=== PATIENT | male | born 1955 | race Caucasian/White ===

== ENCOUNTER 2016-09-05 14:45 | Inpatient (IN) | payer SELFPAY ==
--- NOTE | ~2016-09-05 | IDS ---
Interim Discharge Summary [facility] [address] [place]. [address] NAME: BRISSA KUMARI : 51 STATUS : ADM IN PAT#: [id number] AGE: 61 ADM/REG DATE : 09/05/16 MR#: [id number] REPORT SERV DATE: 09/09/16 DICTATED BY: BRIANA DECKER DATE: 09/09/16 REPORT STATUS : Draft TRANSCRIBED BY: MODL DATE: 09/09/16 ADMISSION DATE: 09/05/2016 DISCHARGE DATE: CURRENT HOSPITAL DIAGNOSES: 1. Hydronephrosis, acute on chronic renal failure. 2. Left renal mass. 3. Left flank pain, fevers, and chills secondary to above. 4. Prior history of renal cancer. 5. History of asthma. 6. History of coronary artery disease, congestive heart failure. 7. Hypertension. CONSULTATIONS: Dr. Miller of Urology, Dr. Smiley, Infectious Disease, and Nephrology. PROCEDURES: 1. Renal biopsy. 2. CT abdomen and pelvis done on 09/05/2016 showing moderate left hydronephrosis and hydroureter to the level of the patient's ileal conduit. Prominent left perinephric stranding, concerning for stricture of the ureter at this level with conduit, superimposed infection with pyelonephritis is not excluded. Stable irregular hyperdense exophytic lesion, left kidney 21 x 31 with some associated fat density in the superior aspect. This may represent post ablation scar status post right nephrectomy, cystectomy, and ileal conduit creation. Small seroma involving the left flank musculature, cholelithiasis without cystitis. Previous median sternotomy. 3. Left nephrostomy tube placement. CURRENT PHYSICAL FINDINGS AND HISTORY OF PRESENT ILLNESS: Please see dictated H and P by Dr. Gandara. In brief, the patient is a 61-year-old male with above medical history who presented with complaints of left flank pain, fever, and chills. LABORATORY AND VITALS: Presenting BP was 137/72, temp was 101.4. Pulse was in the low 100s. LAB: Initial BMP showed a creatinine of 4.36, it did climb as high as 4.98 on 09/07/2016 but is currently trending down to most recent 3.76. Lactate was 1.8 on 09/05/2016, 0.7 on the 09/06/2016. Initial white count was 11.2, reaching a maximum of 13, subsequent was 6.5 and 4.7. MICROBIOLOGY: Blood count showed a strep viridans and a Klebsiella. Subsequent blood cultures were negative. Surgical cultures are pending. Urine culture was E. coli, and Klebsiella oxytoca. HOSPITAL COURSE: The patient was admitted. ID and Urology were consulted. IV fluids were initiated at 150. Antifungals and antibiotics were started given patient's previous history. Reasonable pain medications were also provided. Intervention Radiology was consulted for the nephrostomy tube placement and CT guided biopsies which were performed Interim Discharge Summary [address] [address] NAME: BRISSA KUMARI : 51 STATUS : ADM IN [facility]#: [id number] AGE: 61 ADM/REG DATE : 09/05/16 MR#: [id number] REPORT SERV DATE: 09/09/16 DICTATED BY: BRIANA DECKER DATE: 09/09/16 REPORT STATUS : Draft TRANSCRIBED BY: MODL DATE: 09/09/16 without incident. The following morning, Nephrology was consulted, and his antibiotics were changed to Zosyn and his micafungin was discontinued. Serial creatinines were followed and improving. Nephrology had no other recommendations as the patient needing emergent dialysis. The patient continued to improve with no pain, tolerating diet, ambulatory, no significant electrolyte abnormalities and no fluid overload issues. DISPOSITION: The patient is expected to be discharged in the morning with p.o. antibiotics and Nephrology and Urology followup. BLACKF/MODL Briana Decker M.D. / [id number] CC: Favian Duran MD
--- NOTE | ~2016-09-05 | CN ---
Consultation Report [facility] [address] [place]. [address] NAME: BRISSA KUMARI : 51 STATUS : ADM IN PAT#: [id number] AGE: 61 ADM/REG DATE : 09/05/16 MR#: [id number] REPORT SERV DATE: 09/06/16 DICTATED BY: GERALD SMILEY DATE: 09/06/16 REPORT STATUS : Draft TRANSCRIBED BY: MODL DATE: 09/06/16 INFECTIOUS DISEASE CONSULTATION DATE OF CONSULTATION: 09/06/2016 REASON FOR CONSULTATION: Pyelonephritis with sepsis. HISTORY OF PRESENT ILLNESS: This is a 61-year-old man with past medical history notable for severe chronic cystitis with right renal atrophy and left hydronephrosis, for which he underwent right laparoscopic simple nephrectomy, open simple cystectomy, and ileal conduit diversion by Dr. Miller in 11/2015. He also has a history of left-sided renal cell carcinoma, treated surgically in [place] about eight years ago. Since his surgery last summer, he has been doing very well until he awoke early yesterday morning with severe left flank pain. He also noticed that he did not have much output into his ileal conduit bag. These symptoms brought him to Dr. Miller' office, where he looked quite ill and was sent to the emergency department, where he was found to be tachycardiac, mildly tachypneic, and have a fever of 101.4 and white blood cell count of 11,200. The patient underwent a CT scan of the abdomen and pelvis without IV contrast, which demonstrated moderate left hydronephrosis and hydroureter down to the level of the patient's ileal conduit with prominent left perinephric stranding. There was also the stable, regular, hyperdense exophytic lesion involving the mid to upper left kidney, which was unchanged from the CT scan of 11/2015. The patient had pyuria on his urinalysis. He was started on Zosyn and micafungin empirically. He had had [place] urinary tract infection last summer. The patient also was found to have elevated creatinine above his baseline with a creatinine up to 4.52 today. He does report though that he has had good output into his conduit bag since the initial hours yesterday morning. His urine culture is growing greater than 100,000 colonies of a gram- negative pilo. The patient has been seen by Dr. Miller and is scheduled for a left nephroureteral stent and an antegrade nephrostogram in Interventional Radiology today along with CT-guided biopsy of the left renal mass. He does feel somewhat better. PAST MEDICAL HISTORY: In addition to the above is notable for chronic kidney disease with a creatinine back in May of 3.40. He also has a history of hypertension, hyperlipidemia, nasal polyps. He has coronary artery disease. ALLERGIES: NO KNOWN DRUG ALLERGIES. OUTPATIENT MEDICATIONS: Include Norvasc, Coreg, hydralazine, Indocin p.r.n. for gout, sodium bicarbonate. SOCIAL HISTORY: Nondrinker, nonsmoker. . FAMILY HISTORY: Noncontributory. REVIEW OF SYSTEMS: Consultation Report [address] [place]. [address] NAME: BRISSA KUMARI : 51 STATUS : ADM IN [facility]#: [id number] AGE: 61 ADM/REG DATE : 09/05/16 MR#: [id number] REPORT SERV DATE: 09/06/16 DICTATED BY: GERALD SMILEY DATE: 09/06/16 REPORT STATUS : Draft TRANSCRIBED BY: MICH DATE: 09/06/16 Otherwise negative. PHYSICAL EXAMINATION: VITAL SIGNS: The patient weighs 104 kg. He is afebrile. Blood pressure 168/73, pulse at present is 89, respiratory rate 14. Maximum temperature since his admission was 101.4 yesterday. GENERAL: He is alert, in no acute distress. HEAD AND NECK: Unremarkable. LUNGS: Clear to auscultation. CARDIAC: Regular rate and rhythm. Normal S1 and S2 without murmur, gallop, or rub. ABDOMEN: Soft and nontender. Ileal conduit in place. There is tenderness to palpation over the left flank area. SKIN: Without rash. EXTREMITIES: Without significant edema. He has a peripheral IV without phlebitis. LABORATORY STUDIES: White blood cell count today 13.0, hemoglobin 10.7, platelets 148. Creatinine of 4.52, albumin is 2.6, liver function tests normal. Culture data as noted above. CT scan as noted. IMPRESSION: Gram-negative pilo pyelonephritis with sepsis on admission in a patient with a history of right nephrectomy and ileal conduit. He also has chronic kidney disease and acute kidney injury along with a history of renal cell carcinoma in the distant past with a stable left renal mass now. PLAN: 1. We will continue Zosyn and stop the micafungin pending final urine culture results. 2. The patient will undergo left nephroureteral stent and nephrostogram today along with a biopsy of the renal mass. KAI/MICH Gerald Smiley M.D. / [id number] CC: Favian Duran MD
--- NOTE | ~2016-09-05 | DS ---
Discharge Summary [facility] [id number] [place]. [address] NAME: BRISSA KUMARI : 51 STATUS : DIS IN PAT#: [id number] AGE: 61 ADM/REG DATE : 09/05/16 MR#: [id number] REPORT SERV DATE: 09/11/16 DICTATED BY: SHERMAN AYALA DATE: 09/10/16 REPORT STATUS : Draft TRANSCRIBED BY: MICH DATE: 09/10/16 ADMISSION DATE: 09/05/2016 DISCHARGE DATE: 09/10/2016 DISCHARGE DIAGNOSES: 1. Left-sided hydronephrosis, status post nephrostomy tube placement. 2. Left renal mass. 3. Prior history of renal cancer. 4. History of asthma. 5. History of coronary artery disease. 6. Congestive heart failure. 7. Hypertension. HOSPITAL COURSE: This is basically just an addendum to an interim discharge summary that was dictated by Dr. Felipe Poon just yesterday. Please refer to his interim discharge summary for details. Basically, the patient was ready for discharge home and was awaiting a p.o. transition of antibiotic therapy before he is discharged home. This morning, the patient's antibiotic was changed to p.o. Levaquin, and the patient is being discharged home with close outpatient followup instructions with Urology as well as Nephrology. FREDDY/MICH Sherman Ayala MD / [id number]
--- NOTE | ~2016-09-05 | CN ---
Consultation Report [facility] [address] [place]. [address] NAME: BRISSA KUMARI : 51 STATUS : ADM IN PAT#: [id number] AGE: 61 ADM/REG DATE : 09/05/16 MR#: [id number] REPORT SERV DATE: 09/06/16 DICTATED BY: THIERRY MILLER DATE: 09/06/16 REPORT STATUS : Draft TRANSCRIBED BY: MODL DATE: 09/06/16 CONSULTATION DATE OF CONSULTATION: 09/06/2016 REASON CONSULTATION: 1. Hydronephrosis and acute renal failure. 2. Left renal mass. HISTORY OF PRESENT ILLNESS: Mr. uKmari is a 61-year-old male, who is well known to me. He has a history of a nonfunctioning right kidney and end-stage bladder with vqaox-am-gantsos renal failure about a year ago. He failed all conservative management and had severe hydronephrosis with renal failure. Ultimately, he underwent a radical cystoprostatectomy and right nephrectomy. He has an ileal conduit. He has a left kidney. He has had some residual hydronephrosis, but overall his kidney function has been relatively preserved in followup. He was in his usual state of health until he noticed severe left flank pain acutely. He had a drop in his urine output. He started feeling poorly. He presented to my office and looked unwell. At that time, I sent him immediately to the ER. In the ER, his creatinine was 4.5. A CT scan showed left hydronephrosis and hydroureter. He has had a white count with no fever. He was admitted to the hospitalist service and I have been asked to consult given these findings. Of note, he does have a history of left renal cell carcinoma, which had a treatment in the past. He has a mass in the left kidney. I have been observing this given the implications of any sort of renal surgery on this. We should do any sort of procedure, we would likely need him on dialysis. PAST MEDICAL HISTORY: Chronic kidney disease, kidney cancer, history of atrophic right kidney, history of recurrent fungal UTI, history of left nephrostomy tube placement, asthma, congestive heart failure, coronary artery disease, status post CABG, hypertension, gout. SURGICAL HISTORY: Left partial nephrectomy in the remote past, right nephrectomy for atrophic kidney, radical cystoprostatectomy with ileal conduit urinary diversion, CABG, history of percutaneous procedures on the left kidney. SOCIAL HISTORY: He has significant alcohol consumption. He does not smoke. No illegal drugs. FAMILY HISTORY: Noncontributory. ALLERGIES: NONE. MEDICATIONS: Reviewed and are listed on the chart. REVIEW OF SYSTEMS: 12-point review of systems was performed. Pertinent positives are listed in the HPI. Consultation Report [address] [place]. [address] NAME: BRISSA KUMARI : 51 STATUS : ADM IN [facility]#: [id number] AGE: 61 ADM/REG DATE : 09/05/16 MR#: [id number] REPORT SERV DATE: 09/06/16 DICTATED BY: THIERRY MILLER DATE: 09/06/16 REPORT STATUS : Draft TRANSCRIBED BY: MICH DATE: 09/06/16 PHYSICAL EXAMINATION: VITAL SIGNS: Temperature is 99.3, pulse 70s to 80s, blood pressure 168/73, saturating 95% on room air. He has no acute distress. He appears his stated age. HEENT: Head is normocephalic and atraumatic. LUNGS: Breathing is nonlabored. He is not in respiratory distress. Pulse is regular in rate and rhythm. ABDOMEN: Soft, nontender, nondistended. He has left CVA tenderness. He has an ileal conduit in the right lower quadrant. : He has normal external genitalia. EXTREMITIES: There is no cyanosis or edema. NEUROLOGIC: He is alert and oriented x3. LABORATORY DATA: His white count is 13.0, hemoglobin 10.7, creatinine is 4.5. He is slightly acidotic with a CO2 of 19. Urine is inflammatory, cultures are pending. IMAGING: CT scan of the abdomen and pelvis without contrast was personally reviewed and interpreted by myself. He has an absence of the right kidney. His left kidney has mild-to- moderate hydronephrosis, down to the level of the ileal conduit. He has a 3 cm left renal mass. PLAN: Mr. Kumari is a 61-year-old male with [id number] renal failure. Fortunately, I am unsure if dehydration or obstruction is the driving force here. Given the fact that he is on the cusp of dialysis, I recommend placement of a left percutaneous nephroureteral stent with Intervention Radiology. A consultation has been placed. As his renal function declines, he may eventually have a nonfunctioning kidney, where we would need to make decisions about what to do with this renal mass. I have held off on treatment as it has been stable and I think any sort of renal procedure would have irreversibly damage that left remaining kidney. However at this time, I think doing a biopsy of his left renal mass will give us information about how to proceed from here. So, again we need to get a left nephrostomy tube and left renal mass biopsy, and Nephrology consult should be ordered. I will continue to follow very closely. JKM/MODL Thierry Miller MD / [id number] CC: Favian Duran MD
--- NOTE | ~2016-09-05 | CN ---
Consultation Report [facility] [address] [place]. [address] NAME: BRISSA KUMARI : 51 STATUS : ADM IN PAT#: [id number] AGE: 61 ADM/REG DATE : 09/05/16 MR#: [id number] REPORT SERV DATE: 09/07/16 DICTATED BY: DATE: REPORT STATUS : Draft TRANSCRIBED BY: MODL DATE: 09/07/16 CONSULTATION DATE OF CONSULTATION: REASON FOR CONSULTATION: Acute kidney injury. HISTORY OF PRESENT ILLNESS: Mr. Kumari is a 61-year-old white male who we saw in original consultation in 11/2015. He has a quite extensive nephrologic history, which includes renal cell carcinoma with right nephrectomy, a left partial nephrectomy. He has had cystectomy, ileal conduit placement. He was set up to follow up in our office last summer after that hospitalization, however, has never been to our office, the details of which I am uncertain on. It looks as though his creatinine in 05/2016 had risen to 3.4. He has been followed by Dr. Miller from a urologic standpoint. He is here at this time, as he awoke on the day of presentation with left flank pain, fevers, chills, and no urine output in his drainage bag. Therefore, he saw Dr. Miller who immediately sent him to the emergency department where he was found to have left hydro, suspicion for pyelo. He also had a left kidney mass and that has been followed at the office. So yesterday, he underwent a left nephrostomy tube with nephroureteral stent and a biopsy of that mass. His creatinine since admission has gone from 4.3 to 4.5 to 4.9. He has only 500 recorded urine output, however, he reports more urine output than that. He is denying any shortness of breath, nausea, or vomiting. No confusion. No edema. PAST MEDICAL HISTORY: Left renal cell carcinoma with partial nephrectomy, right nephrectomy for renal cell. He has had open cystectomy, ileal conduit; coronary artery disease, status post bypass; pulmonary hypertension; CHF is listed in his history, although when I asked about his heart condition, he states that he has good heart function; and gout. ALLERGIES: NONE. SOCIAL HISTORY: He is but lives in a home with his ex-. A distant history of cocaine use. No alcohol. FAMILY MEDICAL HISTORY: Negative for any kidney disease. Positive for diabetes, TIAs, heart disease. MEDICATIONS: Norvasc, Coreg, Apresoline, Zosyn, Ambien, and bicarbonate. REVIEW OF SYSTEMS: 12-point review of systems was obtained and negative with the exception of that in HPI. PHYSICAL EXAMINATION: VITAL SIGNS: Temperature 98.4, blood pressure 140/65, pulse 80, respiratory rate 15, O2 saturation is 95%. Consultation Report [facility] [id number] [place]. [address] NAME: BRISSA KUMARI : 51 STATUS : ADM IN [facility]#: [id number] AGE: 61 ADM/REG DATE : 09/05/16 MR#: [id number] REPORT SERV DATE: 09/07/16 DICTATED BY: DATE: REPORT STATUS : Draft TRANSCRIBED BY: MICH DATE: 09/07/16 GENERAL: This is a pleasant cooperative white male. He is awake, alert, oriented, sitting up in bed, in no acute distress. Answers questions appropriately. HEENT: Normocephalic and atraumatic. Conjunctivae are clear. Sclerae are anicteric. Pupils are equal and round. Oral mucosa is moist. NECK: Supple. Carotids are brisk. Neck veins flat. No lymphadenopathy. LUNGS: Respirations are even and unlabored. Breath sounds are clear to auscultation. HEART: Rate is regular. No murmur, rub, or gallop. ABDOMEN: Soft and nontender. Bowel sounds active. No masses. No hepatosplenomegaly. No bruits. He does have a nephrostomy tube to the left. EXTREMITIES: No lower extremity edema. SKIN: Warm, dry, and intact. No unusual rashes or skin lesions. NEURO: No focal deficits. Mood and affect pleasant and appropriate. PERTINENT LABORATORIES AND X-RAY FINDINGS: Sodium 145, potassium 4.3, chloride 115, CO2 of 19, BUN of 53, creatinine of 4.9, calcium 7.6, magnesium 1.7, albumin of 2.6. WBCs 6.5, hemoglobin and hematocrit 10 and 30, platelets 144,000. Urine: Many bacteria, white blood cells, white blood cell clumps, red blood cells. Protein 100 mg/dL. IMPRESSION: 1. Acute kidney injury. 2. Solitary kidney with partial nephrectomy in the solitary kidney. 3. Status post cystectomy and ileal conduit. 4. Pyelonephritis. 5. Left hydronephrosis. 6. Left kidney mass, status post biopsy, postoperative day 1. PLAN/RECOMMENDATION: Acute kidney injury in the setting of all of the above. He had a left nephrostomy and nephroureteral stent and biopsy to the left renal mass. Creatinine increasing daily. He is nonoliguric and no uremic symptoms or volume overload or indication for HD today. However, I did discuss if continued worsening of renal function, would need to start dialysis. Also even if kidney function gets better, we need to start dialysis planning. He voiced understanding and the need for followup of this. If his biopsy comes back positive and he needs nephrectomy, we will plan on starting dialysis and coordinate that with Urology. We will follow along with you. Thank you for the consultation. ELIZABETH/MICH LUCY Hernandez / [id number] Consultation Report [address] [address] NAME: BRISSA KUMARI : 51 STATUS : ADM IN [facility]#: [id number] AGE: 61 ADM/REG DATE : 09/05/16 MR#: [id number] REPORT SERV DATE: 09/07/16 DICTATED BY: DATE: REPORT STATUS : Draft TRANSCRIBED BY: MICH DATE: 09/07/16 CC: Favian Duran MD
--- NOTE | ~2016-09-05 | HP ---
History And Physical [place] [id number] [facility]. [address] NAME: BRISSA KUMARI : 51 STATUS : ADM IN PAT#: [id number] AGE: 61 ADM/REG DATE : 09/05/16 MR#: [id number] REPORT SERV DATE: 09/06/16 DICTATED BY: RUDOLPH PAZ DATE: 09/06/16 REPORT STATUS : Draft TRANSCRIBED BY: MODL DATE: 09/06/16 DATE OF ADMISSION: 09/05/2016 CHIEF COMPLAINT: Left flank pain, fever, and chills. HISTORY OF PRESENT ILLNESS: This is a 61-year-old male, who presents to the emergency room at [facility] with the above-mentioned complaint. History is obtained from the patient and reviewing data available on the wmb[employer] system. According to the patient, it started around 5:00 a.m. when he woke up, and felt severe pain in the left flank region. He could not get out of bed and decided to sleep some more. When he woke up, he again started experiencing similar pain. The pain actually gradually increased during the course of the day. Around afternoon he went to see his urologist, Dr. Anjum Miller, in his office. Dr. Miller in his words took one look at him and said he needs to go to the ER. In the emergency room, initial workup including CT scan of his abdomen and pelvis showed left perinephric stranding with left hydronephrosis and hydroureter. There was also mention of a possible stricture of the ureter at the level of conduit. ER physician spoke with Dr. Miller, who wanted Hospitalist Service to admit him. At the time of my evaluation, he denied any chest pain or palpitations. He had no orthopnea. He had no cough, hemoptysis, night sweats, or weight loss. He has not had any recent falls or loss of consciousness. He did have some shaking chills today along with possibly fevers according to him. He has had some nausea, but without vomiting. No diarrhea. No other history of hematemesis, hematochezia, or hematuria. No history of recent travel or exposures, other than those mentioned above. PAST MEDICAL HISTORY: Significant for history of chronic kidney disease, history of renal cancer, history of atrophic right kidney, history of recurrent fungal urinary tract infections, history of left nephroureteral stent placement by Dr. Miller recently. He also has history of asthma, congestive heart failure, coronary artery disease with CABG, hypertension, gout. SOCIAL HISTORY: He does not smoke, but has about five to six beers every day. He denies recreational drug use or any other addictions. FAMILY HISTORY: Noncontributory. MEDICATIONS: Medications at home were reviewed by me in the chart today and reordered by me. REVIEW OF SYSTEMS: As in history of present illness. All other systems were reviewed in detail and are quite unremarkable. PHYSICAL EXAMINATION: History And Physical [address] [address] NAME: BRISSA KUMARI : 51 STATUS : ADM IN [facility]#: [id number] AGE: 61 ADM/REG DATE : 09/05/16 MR#: [id number] REPORT SERV DATE: 09/06/16 DICTATED BY: RUDOLPH PAZ DATE: 09/06/16 REPORT STATUS : Draft TRANSCRIBED BY: MICH DATE: 09/06/16 GENERAL: This is a pleasant 61-year-old, not in any acute distress. HEENT: Head is atraumatic and normocephalic. He is alert, awake, oriented to time, place, and person. Pupils are equal, reacting to light and accommodating. External ocular muscles are intact. Membranes are moist and pink. Sclerae are nonicteric. NECK: Supple with no jugular venous distention, lymphadenopathy, or thyromegaly. LUNGS: Clear to auscultation with no wheezes, rubs, or crackles. HEART: Heart sounds were regular with no murmurs, rubs, or gallops. ABDOMEN: There is some tenderness in the left flank region without any rebound or guarding. Bowel sounds are present. EXTREMITIES: No cyanosis, clubbing, or edema. NEUROLOGIC: Grossly intact. No focal sensory or motor deficits. Higher functions appeared intact. VITAL SIGNS: His vital signs today showed a temperature of 101.4 upon arrival. Heart rate was 130, respirations 20 a minute, blood pressure upon arrival 137/72, oxygen saturations were 95%, breathing 2-3 L via nasal cannula. LABORATORY DATA: Reviewed on the wmbly system showed a sodium of 141, potassium 4.2, chloride 111, CO2 was 17, BUN was 47 with a creatinine of 4.36. Glucose was 85. His albumin was 2.6. Otherwise liver numbers were within normal limits. Lipase was 119. Lactate was 1.8. [place] [address], hemoglobin was 11.5, hematocrit 35.5, and platelet count was 189,000. Urinalysis showed large blood, moderate leukocyte esterase, nitrite was negative. There were greater than 192 rbc's and 42 wbc's. Films of the CT scan of his abdomen and pelvis were reviewed by me on the PACS today and official Radiology comments were also reviewed. There is left perinephric stranding with hydroureter and hydronephrosis. There is a possible stricture of the ureter at the level of the conduit. Please see full report for details. IMPRESSION: 1. Left flank pain. 2. Acute pyelonephritis. 3. Acute on chronic kidney disease. 4. Recent left nephroureteral stent placement by Dr. Anjum Miller. 5. Hypertension. 6. Neurogenic bladder. 7. Asthma. 8. Congestive heart failure. 9. History of recurrent fungal urinary tract infections. PLAN: We will admit Mr. Kumari to the Hospitalist Service with telemetry. After cultures are obtained, we will start him on empiric IV antibiotics. Looking at his past microbiological profile he has had numerous urinary tract infections with fungal pathogens. We will start him on Micafungin, give the first dose today and consult Infectious Disease to History And Physical [address] [address] NAME: BRISSA KUMARI : 51 STATUS : ADM IN [facility]#: [id number] AGE: 61 ADM/REG DATE : 09/05/16 MR#: [id number] REPORT SERV DATE: 09/06/16 DICTATED BY: RUDOLPH PAZ DATE: 09/06/16 REPORT STATUS : Draft TRANSCRIBED BY: MODL DATE: 09/06/16 evaluate him. We will also start him on Zosyn intravenously as well. We will offer pain control intravenously on an as needed basis. Start him on IV fluids for volume resuscitation. We will follow chemistry, electrolytes, and replete as needed. We will continue other home medications and treatments. We will also place him on unfractionated heparin for DVT prophylaxis while here. I have discussed the above plans with the patient. His questions were answered and he is agreeable to the above recommendations. Dr. Miller had told the patient that he would be visiting him today as well, we consulted him. Hospitalist Service will be following him during his stay here. MR/VISHALL Rudolph Paz M.D. / [id number] CC: Favian Duran MD
[~2016-09-05 14:45] MED LIST: COREG12 PO; DSS PO; HYDRALAZINE100 MG PO; NORCO1 TAB; NORCO1 TAB PO; NORV10 PO; PERCOCET1 TA4 PO; SODBICAR10 PO; VANCOCIN HCL125 MG PO
[2016-09-05] MEDS ORDERED: OTC SLEEP AID PO (14:54)
[2016-09-05] MEDS ORDERED: INDO50 PO (14:54)
[2016-09-05 15:15] LABS: BASOPHILS 0.2 %; BASOPHILS ABSOLUTE 0.02 10/3/uL (0.0-0.16); EOSINOPHILS 0.1 %; EOSINOPHILS ABSOLUTE 0.01 10/3/uL (0.0-0.53); ER CBC TAT 0 Hrs 08 Mins; HEMOGLOBIN 11.5 g/dL (13.6-17.8); IMMATURE GRANULOCYTES 0.3 %; IMMATURE GRANULOCYTES ABSOLUTE 0.03 10/3/uL (0.0-0.11); LYMPHOCYTES 1.4 %; LYMPHOCYTES ABSOLUTE 0.16 10/3/uL (0.67-4.30); MEAN CORPUS HGB CONC 32.4 g/dL (32.0-36.0); MEAN CORPUSCULAR HEMOGLOB 27.3 pg (26.0-34.0); MEAN CORPUSCULAR VOLUME 84.3 fL (80-100); MEAN PLATELET VOLUME 11.5 fL (9.2-13.0); MONOCYTES 0.4 %; MONOCYTES ABSOLUTE 0.05 10/3/uL (0.21-1.20); NEUTROPHILS 97.6 %; NEUTROPHILS ABSOLUTE 10.94 10/3/uL (2.02-8.40); RBC DISTRIBUTION WIDTH 14.6 % (12.0-16.0); RED CELL COUNT 4.21 10/6/uL (4.7-6.1); WHITE BLOOD CELLS 11.2 10/3/uL (4.5-10.5)
[2016-09-05 15:16] LABS: HEMATOCRIT 35.5 % (40.0-51.0); MANUAL DIFF NO %; PLATELET COUNT 189 10/3/uL (150-400)
[2016-09-05 15:21] LABS: ASCORBIC ACID (UR NOT ORDER) NEG (NEG); BILIRUBIN, URINE NEGATIVE (NEG); ER URINALYSIS TAT 0 Hrs 14 Mins; KETONE, URINE NEGATIVE (NEG); LEUKOCYTE ESTERASE(NOT OR MOD (NEG); NITRITE (URINE) NEG (NEG); WBC (NOT ORDERED) (RFLEX) 42 (0-5)
[2016-09-05 15:29] LABS: A/G RATIO 0.7 (0.7-1.9); ALBUMIN 2.6 G/DL (3.5-5.0); ALKALINE PHOSPHATASE 86 U/L (45-117); BUN (BLOOD UREA NITROGEN) 47 MG/DL (6-23); CALCIUM, SERUM 7.7 MG/DL (8.5-10.4); CHLORIDE, SERUM 111 MMOL/L (96-112); CO2 (CARBON DIOXIDE) 17 MMOL/L (24-34); CREATININE 4.36 MG/DL (0.70-1.30); GFR AFRICAN AMERICAN 16 ML/MIN (>=60); GFR NON AFRICAN AMERICAN 13 ML/MIN (>=60); GLOBULIN 3.9 G/DL (2.5-4.1); GLUCOSE, SERUM 85 MG/DL (60-99); POTASSIUM, SERUM 4.2 MMOL/L (3.5-5.3); SGOT(AST) 15 U/L (5-40); SGPT(ALT) 12 U/L (5-65); SODIUM, SERUM 141 MMOL/L (135-148); TOTAL BILIRUBIN 0.6 MG/DL (0-1.2); TOTAL PROTEIN 6.5 G/DL (6.0-8.5)
[2016-09-05 15:36] LABS: LACTATE 1.8 MMOL/L (0.3-2.4)
[2016-09-06 05:50] LABS: BASOPHILS 0.4 %; BASOPHILS ABSOLUTE 0.05 10/3/uL (0.0-0.16); EOSINOPHILS 1.2 %; EOSINOPHILS ABSOLUTE 0.16 10/3/uL (0.0-0.53); HEMATOCRIT 32.2 % (40.0-51.0); HEMOGLOBIN 10.7 g/dL (13.6-17.8); IMMATURE GRANULOCYTES 0.2 %; IMMATURE GRANULOCYTES ABSOLUTE 0.03 10/3/uL (0.0-0.11); LYMPHOCYTES 2.2 %; LYMPHOCYTES ABSOLUTE 0.28 10/3/uL (0.67-4.30); MEAN CORPUS HGB CONC 33.2 g/dL (32.0-36.0); MEAN CORPUSCULAR HEMOGLOB 28.4 pg (26.0-34.0); MEAN CORPUSCULAR VOLUME 85.4 fL (80-100); MEAN PLATELET VOLUME 11.4 fL (9.2-13.0); MONOCYTES 3.4 %; MONOCYTES ABSOLUTE 0.44 10/3/uL (0.21-1.20); NEUTROPHILS 92.6 %; NEUTROPHILS ABSOLUTE 12.04 10/3/uL (2.02-8.40); PLATELET COUNT 148 10/3/uL (150-400); RED CELL COUNT 3.77 10/6/uL (4.7-6.1)
[2016-09-06 05:55] LABS: MANUAL DIFF NO %
[2016-09-06 06:02] LABS: BUN (BLOOD UREA NITROGEN) 50 MG/DL (6-23); CALCIUM, SERUM 7.8 MG/DL (8.5-10.4); CHLORIDE, SERUM 114 MMOL/L (96-112); CO2 (CARBON DIOXIDE) 19 MMOL/L (24-34); CREATININE 4.52 MG/DL (0.70-1.30); GFR AFRICAN AMERICAN 15 ML/MIN (>=60); GFR NON AFRICAN AMERICAN 13 ML/MIN (>=60); GLUCOSE, SERUM 86 MG/DL (60-99); PHOSPHORUS, SERUM 4.2 MG/DL (2.5-4.5); POTASSIUM, SERUM 4.5 MMOL/L (3.5-5.3); SODIUM, SERUM 143 MMOL/L (135-148)
[2016-09-06 08:00] LABS: ASCORBIC ACID (UR NOT ORDER) NEG (NEG); BILIRUBIN, URINE NEGATIVE (NEG); KETONE, URINE NEGATIVE (NEG); LEUKOCYTE ESTERASE(NOT OR LARGE (NEG); WBC (NOT ORDERED) (RFLEX) 117 (0-5)
[2016-09-06 10:21] LABS: INTERNATIONAL NORMAL RATI 1.3 UNITS (-); PARTIAL THROMBO TIME 33.3 SEC (22.5-37.2); PROTIME (NOT ORD) 15.8 SEC (12.0-14.5)
[2016-09-07 05:43] LABS: BASOPHILS 0.8 %; BASOPHILS ABSOLUTE 0.05 10/3/uL (0.0-0.16); EOSINOPHILS 2.8 %; EOSINOPHILS ABSOLUTE 0.18 10/3/uL (0.0-0.53); HEMATOCRIT 32.5 % (40.0-51.0); HEMOGLOBIN 10.2 g/dL (13.6-17.8); IMMATURE GRANULOCYTES 0.2 %; IMMATURE GRANULOCYTES ABSOLUTE 0.01 10/3/uL (0.0-0.11); LYMPHOCYTES 9.5 %; LYMPHOCYTES ABSOLUTE 0.62 10/3/uL (0.67-4.30); MEAN CORPUSCULAR HEMOGLOB 27.2 pg (26.0-34.0); MEAN CORPUSCULAR VOLUME 86.7 fL (80-100); MEAN PLATELET VOLUME 11.5 fL (9.2-13.0); MONOCYTES 6.6 %; MONOCYTES ABSOLUTE 0.43 10/3/uL (0.21-1.20); NEUTROPHILS 80.1 %; NEUTROPHILS ABSOLUTE 5.25 10/3/uL (2.02-8.40); PLATELET COUNT 144 10/3/uL (150-400); RBC DISTRIBUTION WIDTH 15.6 % (12.0-16.0); RED CELL COUNT 3.75 10/6/uL (4.7-6.1)
[2016-09-07 05:44] LABS: MANUAL DIFF NO %; MEAN CORPUS HGB CONC 31.4 g/dL (32.0-36.0); WHITE BLOOD CELLS 6.5 10/3/uL (4.5-10.5)
[2016-09-07 05:51] LABS: BUN (BLOOD UREA NITROGEN) 53 MG/DL (6-23); CALCIUM, SERUM 7.6 MG/DL (8.5-10.4); CHLORIDE, SERUM 115 MMOL/L (96-112); CO2 (CARBON DIOXIDE) 19 MMOL/L (24-34); CREATININE 4.98 MG/DL (0.70-1.30); GFR AFRICAN AMERICAN 13 ML/MIN (>=60); GFR NON AFRICAN AMERICAN 11 ML/MIN (>=60); POTASSIUM, SERUM 4.3 MMOL/L (3.5-5.3); SODIUM, SERUM 145 MMOL/L (135-148)
[2016-09-07 05:53] LABS: GLUCOSE, SERUM 120 MG/DL (60-99)
[2016-09-08 06:27] LABS: BASOPHILS 1.1 %; BASOPHILS ABSOLUTE 0.05 10/3/uL (0.0-0.16); EOSINOPHILS 7.5 %; EOSINOPHILS ABSOLUTE 0.35 10/3/uL (0.0-0.53); HEMATOCRIT 31.8 % (40.0-51.0); HEMOGLOBIN 10.3 g/dL (13.6-17.8); IMMATURE GRANULOCYTES 0.2 %; IMMATURE GRANULOCYTES ABSOLUTE 0.01 10/3/uL (0.0-0.11); LYMPHOCYTES 17.6 %; LYMPHOCYTES ABSOLUTE 0.82 10/3/uL (0.67-4.30); MEAN CORPUS HGB CONC 32.4 g/dL (32.0-36.0); MEAN CORPUSCULAR HEMOGLOB 27.5 pg (26.0-34.0); MEAN PLATELET VOLUME 11.2 fL (9.2-13.0); MONOCYTES 11.3 %; MONOCYTES ABSOLUTE 0.53 10/3/uL (0.21-1.20); NEUTROPHILS 62.3 %; NEUTROPHILS ABSOLUTE 2.91 10/3/uL (2.02-8.40); PLATELET COUNT 145 10/3/uL (150-400); RBC DISTRIBUTION WIDTH 15.4 % (12.0-16.0); RED CELL COUNT 3.74 10/6/uL (4.7-6.1); WHITE BLOOD CELLS 4.7 10/3/uL (4.5-10.5)
[2016-09-08 06:29] LABS: MANUAL DIFF NO %
[2016-09-08 06:31] LABS: INTERNATIONAL NORMAL RATI 1.1 UNITS (-)
[2016-09-08 06:36] LABS: ALBUMIN 2.1 G/DL (3.5-5.0); CALCIUM, SERUM 8.1 MG/DL (8.5-10.4); CHLORIDE, SERUM 113 MMOL/L (96-112); CO2 (CARBON DIOXIDE) 19 MMOL/L (24-34); CREATININE 4.64 MG/DL (0.70-1.30); GFR AFRICAN AMERICAN 14 ML/MIN (>=60); GFR NON AFRICAN AMERICAN 12 ML/MIN (>=60); POTASSIUM, SERUM 4.4 MMOL/L (3.5-5.3); SODIUM, SERUM 144 MMOL/L (135-148)
[2016-09-08 06:37] LABS: BUN (BLOOD UREA NITROGEN) 44 MG/DL (6-23); GLUCOSE, SERUM 88 MG/DL (60-99)
[2016-09-09 07:13] LABS: ALBUMIN 2.2 G/DL (3.5-5.0); BUN (BLOOD UREA NITROGEN) 38 MG/DL (6-23); CALCIUM, SERUM 8.4 MG/DL (8.5-10.4); CHLORIDE, SERUM 113 MMOL/L (96-112); CO2 (CARBON DIOXIDE) 20 MMOL/L (24-34); CREATININE 3.76 MG/DL (0.70-1.30); GFR AFRICAN AMERICAN 19 ML/MIN (>=60); GFR NON AFRICAN AMERICAN 16 ML/MIN (>=60); GLUCOSE, SERUM 95 MG/DL (60-99); PHOSPHORUS, SERUM 3.2 MG/DL (2.5-4.5); POTASSIUM, SERUM 4.5 MMOL/L (3.5-5.3); SODIUM, SERUM 142 MMOL/L (135-148)
[2016-09-10 06:34] LABS: BASOPHILS 0.6 %; BASOPHILS ABSOLUTE 0.03 10/3/uL (0.0-0.16); EOSINOPHILS 3.1 %; EOSINOPHILS ABSOLUTE 0.15 10/3/uL (0.0-0.53); HEMATOCRIT 33.8 % (40.0-51.0); HEMOGLOBIN 10.8 g/dL (13.6-17.8); IMMATURE GRANULOCYTES 0.2 %; IMMATURE GRANULOCYTES ABSOLUTE 0.01 10/3/uL (0.0-0.11); LYMPHOCYTES 19.4 %; LYMPHOCYTES ABSOLUTE 0.94 10/3/uL (0.67-4.30); MEAN CORPUSCULAR HEMOGLOB 27.3 pg (26.0-34.0); MEAN CORPUSCULAR VOLUME 85.6 fL (80-100); MEAN PLATELET VOLUME 11.7 fL (9.2-13.0); MONOCYTES 10.7 %; MONOCYTES ABSOLUTE 0.52 10/3/uL (0.21-1.20); NEUTROPHILS ABSOLUTE 3.19 10/3/uL (2.02-8.40); PLATELET COUNT 159 10/3/uL (150-400); RBC DISTRIBUTION WIDTH 14.2 % (12.0-16.0); RED CELL COUNT 3.95 10/6/uL (4.7-6.1); WHITE BLOOD CELLS 4.8 10/3/uL (4.5-10.5)
[2016-09-10 06:35] LABS: MANUAL DIFF NO %
[2016-09-10 06:42] LABS: ALBUMIN 2.3 G/DL (3.5-5.0); BUN (BLOOD UREA NITROGEN) 35 MG/DL (6-23); CALCIUM, SERUM 8.1 MG/DL (8.5-10.4); CHLORIDE, SERUM 113 MMOL/L (96-112); CO2 (CARBON DIOXIDE) 21 MMOL/L (24-34); CREATININE 3.63 MG/DL (0.70-1.30); GFR AFRICAN AMERICAN 19 ML/MIN (>=60); GFR NON AFRICAN AMERICAN 17 ML/MIN (>=60); GLUCOSE, SERUM 101 MG/DL (60-99); PHOSPHORUS, SERUM 3.1 MG/DL (2.5-4.5); POTASSIUM, SERUM 4.8 MMOL/L (3.5-5.3); SODIUM, SERUM 143 MMOL/L (135-148)
[2016-09-10] MEDS ORDERED: LEVAQUIN750 MG PO (11:37)
[2016-10-09] MEDS ORDERED: AMB10 PO (13:08)
== END 2016-09-10 13:05 | disposition home or self-care (01) | DRG 683 ==
LOC: ER 14:45 → 4SO 19:44
PROVIDERS: Internal Medicine; Internal Medicine Infectious Disease; Internal Medicine Pulmonary Disease; Nurse Practitioner; Nurse Practitioner Family; Radiology Vascular & Interventional Radiology; Registered Nurse
PROC: 0TB43ZX Excision of Left Kidney Pelvis, Percutaneous Approach, Diagnostic (ICD-10-PCS; principal; 2016-09-06)
PROC: 0T9130Z Drainage of Left Kidney with Drainage Device, Percutaneous Approach (ICD-10-PCS; principal; 2016-09-06)
DX: N17.9 Acute kidney failure, unspecified (principal); R78.81 Bacteremia; I50.9 Heart failure, unspecified; N10 Acute pyelonephritis; N31.9 Neuromuscular dysfunction of bladder, unspecified; Z93.6 Other artificial openings of urinary tract status; N13.6 Pyonephrosis; Z85.528 Personal history of other malignant neoplasm of kidney; N18.9 Chronic kidney disease, unspecified; J45.909 Unspecified asthma, uncomplicated; I25.10 Atherosclerotic heart disease of native coronary artery without angina pectoris; Z95.1 Presence of aortocoronary bypass graft; I12.9 Hypertensive chronic kidney disease with stage 1 through stage 4 chronic kidney disease, or unspecified chronic kidney disease; M10.9 Gout, unspecified; Z87.440 Personal history of urinary (tract) infections; B96.1 Klebsiella pneumoniae [K. pneumoniae] as the cause of diseases classified elsewhere; B95.4 Other streptococcus as the cause of diseases classified elsewhere; N28.89 Other specified disorders of kidney and ureter; Z90.5 Acquired absence of kidney; E78.5 Hyperlipidemia, unspecified; Z90.6 Acquired absence of other parts of urinary tract
CPT/HCPCS: 50200; 50433; 74176; 77012; 80048; 80053; 80069; 81001; 83605; 83690; 83735; 84100; 85025; 85610; 85730; 87015; 87040; 87070; 87075; 87077; 87086; 87102; 87116; 87150; 87186; 87205; 88305; 88333; 96374; 99285; A9270-GY; C1769; C1894; C2625; J1170; J2248; J2250; J2405; J2543; J3010; Q9967